=== PATIENT | male | born 1980 | race Asian ===

== ENCOUNTER 2024-10-11 00:20 | Inpatient (IN) | payer SELFPAY ==
[~2024-10-11] VITALS: Ht 175.3 cm; Wt 142.0 kg
[2024-10-11 00:35] VITALS: O2SAT 99
[2024-10-11] MEDS ORDERED: HALOPERIDOL 5 MG TABLET PO PRN (02:00)
[2024-10-11] MEDS ORDERED: ZOLPIDEM TARTRATE 10 MG TABLET PO PRN (02:00)
[2024-10-11] MEDS ORDERED: LORazepam 2 MG TABLET PO PRN (02:00)
[2024-10-11 02:05] LABS: BASOPHILS % (AUTO) 0.2 % (0.0-2.0); EOSINOPHILS % (AUTO) 0.3 % (1.0-6.0); HEMATOCRIT 44.4 % (41-53); HEMOGLOBIN 14.8 g/dL (13.5-17.5); LYMPHOCYTES # (AUTO) 1.3 K/uL (1.0-4.8); LYMPHOCYTES % (AUTO) 13.6 % (22.0-44.0); MEAN CORPUSCULAR HEMOGLOBIN 34.1 pg (26.0-34.0); MEAN CORPUSCULAR HGB CONC 33.4 G/dL (31.0-37.0); MEAN CORPUSCULAR VOLUME 102 fL (80-100); MONOCYTES # (AUTO) 0.2 K/uL (0.1-1.0); MONOCYTES % (AUTO) 2.6 % (2.0-9.0); NEUTROPHILS # (AUTO) 7.7 K/uL (1.8-7.7); NEUTROPHILS % (AUTO) 83.3 % (40.0-70.0); PLATELET COUNT (AUTO) 239 K/uL (150-450); RED BLOOD CELL COUNT(AUTO) 4.34 MIL/uL (4.50-5.90); RED CELL DISTRIBUTION WIDTH 13.5 % (11.5-14.5); WHITE BLOOD COUNT (AUTO) 9.2 K/uL (4.5-11.0)
[2024-10-11 02:11] LABS: ANION GAP 11 mmol/L (8-16); CALCIUM, TOTAL 9.3 mg/dL (8.8-10.5); CARBON DIOXIDE 27 mmol/L (22-29); CHLORIDE 102 mmol/L (98-107); GLOMERULAR FILTR. RATE CALC > 60 mL/min (>60); GLUCOSE,RANDOM 99 mg/dL (70-110); POTASSIUM 4.2 mmol/L (3.5-5.1); SODIUM SERUM 140 mmol/L (136-145); UREA NITROGEN, BLOOD 9 mg/dL (7-18)
[2024-10-11 02:18] LABS: ALCOHOL, BLOOD (SERUM) < 3 mg/dL (0-10)
[2024-10-11 02:54] LABS: PH,URINE DRUG SCREEN 5.5 (5.0-8.0)
[2024-10-11 02:56] LABS: COVID AG,FIA SOURCE NASAL SWAB
[2024-10-11 03:02] LABS: ALCOHOL, URINE DRUG SCREEN NEGATIVE (NEGATIVE); AMPHET/METH SCREEN,URINE NEGATIVE (NEGATIVE); BARBITURATE SCREEN, URINE NEGATIVE (NEGATIVE); BENZODIAZEPINES SCREEN,URINE NEGATIVE (NEGATIVE); CANNABINOID SCREEN,URINE POSITIVE (NEGATIVE); COCAINE SCREEN,URINE NEGATIVE (NEGATIVE); METHADONE SCREEN, URINE NEGATIVE (NEGATIVE); OPIATE SCREEN,URINE NEGATIVE (NEGATIVE); PHENCYCLIDINE SCREEN,URINE NEGATIVE (NEGATIVE)
[2024-10-11 03:34] LABS: SARS-COV2 (COVID) ANTIGEN,FIA Negative (Negative)
[2024-10-11 05:26] VITALS: BP 105/67; PULSE 84; RESP 16; TEMP 98.9; O2SAT 96
[2024-10-11] MEDS ORDERED: PETROLATUM,WHITE 28 GM JELLY TP PRN (07:15)
[2024-10-11] MEDS ORDERED: ACETAMINOPHEN 325 MG TABLET PO PRN (07:15)
[2024-10-11] MEDS ORDERED: ONDANSETRON 4 MG TABLET PO PRN (07:15)
[2024-10-11] MEDS ORDERED: OMEPRAZOLE 20 MG CAPSULE PO PRN (07:15)
[2024-10-11] MEDS ORDERED: LOPERAMIDE HCL 2 MG CAPSULE PO PRN (07:15)
[2024-10-11] MEDS ORDERED: IBUPROFEN 600 MG TABLET PO PRN (07:15)
[2024-10-11] MEDS ORDERED: BENZOCAINE/MENTHOL LOZENGE PO PRN (07:15)
[2024-10-11] MEDS ORDERED: ALBUTEROL SULFATE HFA 90 MCG/PUFF 8 GM INHALER IH PRN (07:15)
[2024-10-11] MEDS ORDERED: MAG HYDROX/ALUMINUM HYD/SIMETH ES 30 ML SUSPENSION UDCUP PO PRN (07:15)
[2024-10-11] MEDS ORDERED: CloNIDine HCL 0.1 MG TABLET PO PRN (07:15)
[2024-10-11] MEDS ORDERED: BACITRACIN 28 GM OINTMENT TP PRN (07:15)
[2024-10-11] MEDS ORDERED: DOCUSATE SODIUM 100 MG CAPSULE PO PRN (07:15)
[2024-10-11] MEDS ORDERED: MAGNESIUM HYDROXIDE SUSPENSION 30 ML UDCUP PO PRN (07:15)
[2024-10-11 08:25] VITALS: BP 125/78; PULSE 87; RESP 18; TEMP 97.7; O2SAT 99
[2024-10-11 20:08] VITALS: BP 133/86; PULSE 94; RESP 17; TEMP 98.5; O2SAT 97
[2024-10-12 08:20] VITALS: BP 123/86; RESP 17; TEMP 98; O2SAT 96
[2024-10-12] MEDS: RisperiDONE 3 MG TABLET PO SCH (09:00)
[2024-10-12 20:12] VITALS: BP 129/79; PULSE 79; RESP 17; TEMP 98.2; O2SAT 99
[2024-10-13 08:30] VITALS: BP 128/80; RESP 16; TEMP 97.7; O2SAT 100
[2024-10-13] MEDS: LITHIUM CARBONATE 300 MG CAPSULE PO SCH (09:11)
[2024-10-14 08:15] VITALS: BP 130/78; PULSE 86; RESP 18; TEMP 97.6; O2SAT 99
[2024-10-14] MEDS ORDERED: LITH300C3 PO (17:43)
[2024-10-14] MEDS ORDERED: RISP3TAB77 PO (17:43)
== END 2024-10-14 18:45 | disposition home or self-care (01) | DRG 885 ==
LOC: EMS 00:20 → B3A 03:24 → B2S 10-14 16:41
PROVIDERS: ADMIT Psychiatry & Neurology Psychiatry; ATTEND Psychiatry & Neurology Psychiatry
DX: F20.9 Schizophrenia, unspecified (principal); F41.9 Anxiety disorder, unspecified; Z20.822 Contact with and (suspected) exposure to COVID-19; G47.00 Insomnia, unspecified; K59.00 Constipation, unspecified; F12.90 Cannabis use, unspecified, uncomplicated; R45.850 Homicidal ideations; Z79.899 Other long term (current) drug therapy
CPT/HCPCS: 80048; 80307; 85025; 99285; G0480